=== PATIENT | male | born 1980 | race Caucasian/White ===

== ENCOUNTER → 2016-12-20 | Outpatient (CLI) | payer BC | LOC: BMCIMAGING 08:34 | PROVIDERS: ATTEND Internal Medicine Endocrinology, Diabetes & Metabolism | DX: E04.9 Nontoxic goiter, unspecified (principal) | CPT/HCPCS: 76536-PO ==

== ENCOUNTER → 2018-02-04 | Outpatient (CLI) | payer BC | END | disposition home or self-care (01) | LOC: BMCIMAGING 16:32 | PROVIDERS: ATTEND Internal Medicine | DX: R19.09 Other intra-abdominal and pelvic swelling, mass and lump (principal) ==